=== PATIENT | male | born 1980 | race Caucasian/White ===

== ENCOUNTER 2023-06-13 09:39 | Outpatient (CLI) | payer OTHER, SELFPAY | END 2023-06-13 09:40 | disposition home or self-care (01) | LOC: NFLDREF 12:43 | PROVIDERS: PCP Family Medicine; Referring Provider Family Medicine; Visit Provider Family Medicine | DX: Z13.220 Encounter for screening for lipoid disorders (principal); G62.9 Polyneuropathy, unspecified; Z13.1 Encounter for screening for diabetes mellitus; R79.89 Other specified abnormal findings of blood chemistry | CPT/HCPCS: 80061; 82306; 82607; 82947 ==

== ENCOUNTER 2023-12-18 10:05 | Outpatient (CLI) | payer OTHER, SELFPAY ==
--- OUTSIDE RECORDS SUMMARY | 2023-12-18 10:08 | XMS_ITS | Clinical Summary ---
Author Organization [facility] Address [place], [place] [address] Care Team Providers Care Steel Inspector Name Role Phone Pcp, No Primary Care Provider Unavailabl e Allergies No known active allergies Medications Medication Sig Dispensed Refills Start Date End Date Status buPROPion (WELLBUTRIN XL) 300 mg Extended-Release tablet TAKE 1 TABLET (300 MG TOTAL) BY MOUTH DAILY Active Social History Tobacco Use Types Packs/Day Years Used Date Smoking Tobacco: Never Smokeless Tobacco: Never Tobacco Cessation:Counseling Given: Yes Sex and Gender Information Value Date Recorded Sex Assigned at Not on file Gender Identity Not on file Sexual Orientation Not on file Obstetrics History Last Filed Vital Signs Vital Sign Reading Time Taken Comments Blood Pressure 119/76 06/27/2023 1:17 PM [employer] tow er Pulse 59 06/27/2023 1:17 PM [employer] Temperature - - Respiratory Rate - - Oxygen Saturation 98% 06/27/2023 1:17 PM [employer]ICER Inhaled Oxygen Concentration - - Weight 111.6 kg (246 lb) 06/27/2023 1:17 PM [employer]ER Height - - Body Mass Index - - Plan of Treatment Health Maintenance Due Date Last Done Comments Tdap 06/29/1990 Depression screening for age 12+ 1991 HIV for age 15-65 06/29/1994 BMI (ht and wt on same day) for age 18+ 06/29/1997 Hepatitis C screening for age 18-79 06/29/1997 Tetanus booster 1999 Lipids for age 35-44 06/29/2014 Influenza for age 9-49 12/24/2023 COVID-19 vaccine series Completed 06/20/19 24, 03/30/2021, 08/15/2020, Additional history exists Pneumococcal series for age 6-64 Aged Out No longer eligible based on patient's age to complete this topic Care Teams Steel Inspector Relationship Specialty Start Date End Date Pcp, No . PCP - General 05/26/23
--- NOTE | 2023-12-18 10:15 | CRLHL7_ITS ---
For Patients: As a result of the Cures Act, medical imaging exams and procedure reports are released immediately into your electronic medical record. You may view this report before your referring provider. If you have questions, please contact your health care provider. INDICATION: Thoracic back pain. Shoulder pain. TECHNIQUE: Thoracic spine MRI without contrast. COMPARISON: None. FINDINGS: Normal alignment and curvature of the thoracic spine. No acute fracture or aggressive marrow lesion. No cord signal abnormality. No intradural lesion. No significant abnormalities of the mediastinal, paraspinous or retroperitoneal soft tissues. Disc/endplates: Mild disc height loss and disc desiccation T6-7, T7-8, T8-9 and T9-10. Remaining discs exhibit normal height and signal. Spinal canal/neural foramina: A few shallow disc bulges which flattens the thecal sac without spinal canal stenosis. Scattered low-grade thoracic facet arthrosis without neural foraminal stenosis. IMPRESSION: 1. Scattered thoracic spondylosis without high-grade spinal canal/neural foraminal stenosis or impingement of neural structures. 2. Thoracic cord signal is normal. No intradural pathology. Dictated by Gavin Fatima MD @ 12/18/2023 11:46:35 AM (Electronically Signed)
== END 2023-12-18 10:06 | disposition home or self-care (01) ==
LOC: MRI 10:06
PROVIDERS: PCP Family Medicine; Visit Provider Family Medicine
DX: M54.6 Pain in thoracic spine (principal); M47.894 Other spondylosis, thoracic region; M25.519 Pain in unspecified shoulder
CPT/HCPCS: 72146

== ENCOUNTER 2025-02-11 11:03 | Outpatient (CLI) | payer OTHER, SELFPAY ==
--- NOTE | 2025-03-11 12:24 | W.PM.SLEEP ---
Sleep Study Details Details Interpreting Provider: Keerthi Date of Sleep Study: 02/11/25 Sleep Study Details: STUDY TYPE:? Home unattended ? BMI:? 31.87 ORDERING PROVIDER:? Elif INDICATION:? Concern for sleep apnea ? SLEEP SUMMARY:? 339 minutes monitored RESPIRATORY SUMMARY:? AHI 67 Low oxygen 72 Central index 6.6 39.5% of study oxygen less than 90% Snoring 86% PERIODIC LIMB MOVEMENTS OF SLEEP:? Not recorded CARDIAC:? Range 50-90, mean 59.4 beats per minute IMPRESSION:? Severe obstructive sleep apnea with significant hypo oxygenation. The central apnea index was 6.6 RECOMMENDATION: Treatment options would include AutoSet CPAP with very close monitoring versus an in-lab titration. Once effective therapy is established would recommend an overnight oximetry study be performed. Further cardiopulmonary evaluation may be indicated.
== END 2025-02-11 11:04 | disposition home or self-care (01) ==
LOC: SLEEP 11:05
PROVIDERS: PCP Family Medicine; Visit Provider Family Medicine
DX: G47.33 Obstructive sleep apnea (adult) (pediatric) (principal)
CPT/HCPCS: 95806